=== PATIENT | female | born 1975 | race Caucasian/White ===

== ENCOUNTER 2023-07-30 13:06 | Outpatient (RCR) | payer BC, SELFPAY | END 2023-07-30 23:59 | disposition home or self-care (01) | LOC: ROT 13:06 | PROVIDERS: ATTENDING PHYSICIAN Orthopaedic Surgery; FAMILY PHYSICIAN Family Medicine | DX: M25.521 Pain in right elbow (principal); M77.11 Lateral epicondylitis, right elbow; Z73.6 Limitation of activities due to disability | CPT/HCPCS: 97010; 97110; 97140; 97166; 97530; 97535 ==

== ENCOUNTER → 2023-09-29 06:30 | Day surgery (SDC) | payer BC, SELFPAY | LOC: GI 06:30 | PROVIDERS: ATTENDING PHYSICIAN Internal Medicine Gastroenterology | DX: Z12.11 Encounter for screening for malignant neoplasm of colon (principal); K64.8 Other hemorrhoids; D12.5 Benign neoplasm of sigmoid colon; Z83.719 Family history of colon polyps, unspecified | CPT/HCPCS: 45385; 88305 ==

== ENCOUNTER → 2023-10-01 07:57 | Outpatient (REF) | payer BC, SELFPAY ==
[2023-10-01 09:21] LABS: ALT (SGPT) 24 U/L (0-35); AST (SGOT) 23 U/L (14-36); Alkaline Phosphatase 47 U/L (38-126); Blood Urea Nitrogen 12 mg/dl (7-17); Calcium 9.3 mg/dl (8.4-10.2); Carbon Dioxide 29 mmol/L (22-30); Chloride 102 mmol/L (98-107); Glucose 102 mg/dl (70-99); Potassium 4.3 mmol/L (3.5-5.1); Sodium 138 mmol/L (135-145); Total Bilirubin 1.7 mg/dl (0.2-1.3); eGFR > 60.00
[2023-10-01 09:51] LABS: TSH Reflex To Free T4 1.19 uIU/ml (0.47-4.68)
== END ==
LOC: RAD 07:57
PROVIDERS: ATTENDING PHYSICIAN Internal Medicine Endocrinology, Diabetes & Metabolism; FAMILY PHYSICIAN Family Medicine
DX: E04.2 Nontoxic multinodular goiter (principal)
CPT/HCPCS: 36415; 76536; 80053; 84443

== ENCOUNTER → 2023-12-02 19:12 | Outpatient (REF) | payer BC, SELFPAY | LOC: WDC 19:12 | PROVIDERS: ATTENDING PHYSICIAN Obstetrics & Gynecology Gynecology; FAMILY PHYSICIAN Family Medicine | DX: Z12.31 Encounter for screening mammogram for malignant neoplasm of breast (principal); Z01.419 Encounter for gynecological examination (general) (routine) without abnormal findings | CPT/HCPCS: 77063; 77067 ==

== ENCOUNTER → 2024-11-10 06:54 | Outpatient (REF) | payer BC, SELFPAY | LOC: MRI 3T 06:54 | PROVIDERS: ATTENDING PHYSICIAN Physician Assistant Medical; FAMILY PHYSICIAN Family Medicine | DX: M48.062 Spinal stenosis, lumbar region with neurogenic claudication (principal); M43.16 Spondylolisthesis, lumbar region | CPT/HCPCS: 72148 ==

== ENCOUNTER → 2025-04-06 09:50 | Outpatient (REF) | payer BC, SELFPAY | LOC: WDC 09:50 | PROVIDERS: ATTENDING PHYSICIAN Obstetrics & Gynecology Gynecology; FAMILY PHYSICIAN Family Medicine | DX: N63.0 Unspecified lump in unspecified breast (principal) | CPT/HCPCS: 76642; 77062; 77066 ==

== ENCOUNTER 2025-04-21 13:11 | Emergency (ER) | payer BC, SELFPAY ==
[2025-04-21 13:14] VITALS: BP 169/111
[2025-04-21 13:38] LABS: Hematocrit 44.3 % (37.0-47.0); Hemoglobin 15.7 g/dL (12.0-16.0); Mean Corp Hgb Conc. 35.4 g/dL (33.0-37.0); Mean Corpuscular Volume 90.2 fL (81.0-99.0); Nucleated Red Blood Cells % 0 %; Platelet Count 259 10^3/uL (130-400); Red Cell Dist. Width 11.5 % (11.5-14.5)
[2025-04-21 13:45] LABS: HCG, Serum Qualitative Screen Negative
[2025-04-21 13:52] LABS: Blood Urea Nitrogen 8 mg/dl (7-17); Calcium 10.1 mg/dl (8.4-10.2); Carbon Dioxide 24 mmol/L (22-30); Chloride 105 mmol/L (98-107); Glucose 98 mg/dl (70-99); Potassium 4.1 mmol/L (3.5-5.1); Sodium 138 mmol/L (135-145); eGFR > 60.00
[2025-04-21 14:21] VITALS: BP 141/92
[2025-04-21 15:00] VITALS: BP 156/98
[2025-04-21] MEDS: NSS 1000 IV (15:16)
[2025-04-21] MEDS: ZOFRAN 4 MG IV (15:16)
[2025-04-21] MEDS: TORADOL 15 MG IV (15:18)
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
[2025-04-21 16:00] VITALS: BP 150/93
[2025-04-21 17:00] VITALS: BP 137/127
== END 2025-04-21 17:38 | disposition home or self-care (01) ==
LOC: EMR 13:11
PROVIDERS: Student in an Organized Health Care Education/Training Program; EMERGENCY PHYSICIAN Emergency Medicine; FAMILY PHYSICIAN Family Medicine
DX: S00.31XA Abrasion of nose, initial encounter (principal); S00.81XA Abrasion of other part of head, initial encounter; S40.812A Abrasion of left upper arm, initial encounter; S40.811A Abrasion of right upper arm, initial encounter; W19.XXXA Unspecified fall, initial encounter; F10.90 Alcohol use, unspecified, uncomplicated
CPT/HCPCS: 99284; 96374; 96375; 96361; 70450; 80048; 80306; 84703; 85025